=== PATIENT | male | born 1950 | race Caucasian/White ===

== ENCOUNTER → 2024-07-25 | Outpatient (CLI) | payer OTHER ==
[~2024-07-25] MED LIST: IOHEXOL 350 MG/ML 100 ML VIAL ONE; IOHEXOL 9 MG/ML 500 ML BOTTLE ONE; SODIUM CHLORIDE 0.9% 100 ML ONE
== END | disposition home or self-care (01) ==
LOC: RADMN 07:14
PROVIDERS: ATTEND Family Medicine
DX: N28.1 Cyst of kidney, acquired (principal); N20.0 Calculus of kidney; C34.90 Malignant neoplasm of unspecified part of unspecified bronchus or lung; K42.9 Umbilical hernia without obstruction or gangrene; K74.60 Unspecified cirrhosis of liver; R16.0 Hepatomegaly, not elsewhere classified; J98.11 Atelectasis; J90 Pleural effusion, not elsewhere classified; R60.1 Generalized edema
CPT/HCPCS: 74178; Q9967 ×2; J7050